=== PATIENT | female | born 1955 | race Caucasian/White ===

== ENCOUNTER 2024-03-07 07:28 | Day surgery (SDC) | payer MEDICARE ==
[~2024-03-07] VITALS: Ht 157.5 cm; Wt 59.9 kg
[~2024-03-07 07:28] MED LIST: OMEP-173 PO; PHENYLEPHRINE 10% OPHTH SOL 5ML OD PRN; SUCR1TAB56 PO
[2024-03-07] MEDS: TROPICAMIDE 1% OPHTH SOLN 15ML OD SCH (08:03)
[2024-03-07] MEDS: LIDOCAINE 3.5 % 1ML OPHTH TOPICAL GEL OU ONE (08:03)
[2024-03-07] MEDS: ATROPINE SULFATE 1% OPHTH SOLN 2ML BTL OD SCH (08:03)
[2024-03-07] MEDS: OFLOXACIN 0.3 % (OCUFLOX) OPTH SOL 5ML OD ONE (08:03)
[2024-03-07] MEDS: PHENYLEPHRINE 2.5% OPHTH SOL 2ML OD SCH (08:03)
[2024-03-07] MEDS ORDERED: fentaNYL 100 MCG/2 ML INJECTION As Ordered ONE (08:23)
[2024-03-07] MEDS ORDERED: MIDAZOLAM INJ 2MG/2ML VIAL As Ordered ONE (08:23)
[2024-03-07] MEDS: LIDOCAINE 1% SDV 5ML VIAL As Ordered ONE (08:47)
[2024-03-07] MEDS: BSS IRRIG/VANCO(10MG)/TOBRA(5MG)/EPINEPH(1:1000-0.5CC)500ML BAG-ORONLY As Ordered ONE (08:47)
[2024-03-07] MEDS: CEFUROXIME 1MG/0.1ML INTRACAMERAL INJ As Ordered ONE (08:47)
[2024-03-07 09:00] VITALS: BP 143/65; TEMP 97.2; O2SAT 97
== END 2024-03-07 09:15 | disposition home or self-care (01) ==
LOC: M SDC 07:28
PROVIDERS: ATTEND Ophthalmology
DX: H25.11 Age-related nuclear cataract, right eye (principal); K21.9 Gastro-esophageal reflux disease without esophagitis; Z79.899 Other long term (current) drug therapy; Z90.49 Acquired absence of other specified parts of digestive tract; K90.41 Non-celiac gluten sensitivity
CPT/HCPCS: 66984; 92015; J0697; J2250; J3010; V2788

== ENCOUNTER 2024-03-14 07:09 | Day surgery (SDC) | payer MEDICARE ==
[~2024-03-14] VITALS: Ht 157.5 cm; Wt 59.5 kg
[~2024-03-14 07:09] MED LIST changes: +ATROPINE SULFATE 1% OPHTH SOLN 2ML BTL OS SCH; +LIDOCAINE 3.5 % 1ML OPHTH TOPICAL GEL OU ONE; +OFLOXACIN 0.3 % (OCUFLOX) OPTH SOL 5ML OS ONE; -PHENYLEPHRINE 10% OPHTH SOL 5ML OD PRN; +PHENYLEPHRINE 10% OPHTH SOL 5ML OS PRN; +PHENYLEPHRINE 2.5% OPHTH SOL 2ML OS SCH; +TROPICAMIDE 1% OPHTH SOLN 15ML OS SCH
[2024-03-14] MEDS ORDERED: MIDAZOLAM INJ 2MG/2ML VIAL As Ordered ONE (07:10)
[2024-03-14] MEDS ORDERED: fentaNYL 100 MCG/2 ML INJECTION As Ordered ONE (07:10)
[2024-03-14] MEDS: LIDOCAINE 1% SDV 5ML VIAL As Ordered ONE (09:14)
[2024-03-14] MEDS: BSS IRRIG/VANCO(10MG)/TOBRA(5MG)/EPINEPH(1:1000-0.5CC)500ML BAG-ORONLY As Ordered ONE (09:14)
[2024-03-14] MEDS: CEFUROXIME 1MG/0.1ML INTRACAMERAL INJ As Ordered ONE (09:14)
[2024-03-14 09:24] VITALS: BP 146/88; TEMP 98.1; O2SAT 98
== END 2024-03-14 09:41 | disposition home or self-care (01) ==
LOC: M SDC 07:09
PROVIDERS: ATTEND Ophthalmology
DX: H25.12 Age-related nuclear cataract, left eye (principal); K21.9 Gastro-esophageal reflux disease without esophagitis; Z79.899 Other long term (current) drug therapy; E89.6 Postprocedural adrenocortical (-medullary) hypofunction
CPT/HCPCS: 66984; 92015; J0697; J2250; J3010; V2788